=== PATIENT | female | born 1935 | race Caucasian/White ===

== ENCOUNTER 2019-03-04 10:27 | Emergency (ER) | payer OTHER ==
[~2019-03-04] VITALS: Ht 162.6 cm; Wt 95.7 kg
[2019-03-04 10:27] VITALS: BP_SYST 95
[2019-03-04] MEDS ORDERED: ONDANSETRON HCL 4 MG/2 ML VIAL IVP ONE (11:00)
[2019-03-04 11:38] LABS: BASOPHILS # (AUTO) 0.1 K/uL (0.0-0.2); BASOPHILS % (AUTO) 1.1 % (0.0-2.0); EOSINOPHILS # (AUTO) 0.2 K/uL (0.0-0.4); EOSINOPHILS % (AUTO) 2.2 % (0.0-4.0); HEMATOCRIT 37.3 % (36-48); HEMOGLOBIN 12.5 g/dL (12.0-16.0); LYMPHOCYTES # (AUTO) 1.8 K/uL (1.0-5.5); LYMPHOCYTES % (AUTO) 19.7 % (20.5-51.5); MEAN CORPUSCULAR HEMOGLOBIN 33 pg (27-31); MEAN CORPUSCULAR HGB CONC 33 % (32-36); MEAN CORPUSCULAR VOLUME 99 fL (79.0-98.0); MONOCYTES # (AUTO) 0.5 K/uL (0.0-1.0); MONOCYTES % (AUTO) 5.5 % (1.7-9.3); NEUTROPHILS # (AUTO) 6.7 K/uL (1.8-7.7); NEUTROPHILS % (AUTO) 71.5 % (40.0-70.0); PLATELET COUNT (AUTO) 175 K/uL (130-430); RED BLOOD CELL COUNT(AUTO) 3.75 MIL/uL (4.2-6.2); RED CELL DISTRIBUTION WIDTH 16.5 % (9.0-15.0); WHITE BLOOD COUNT (AUTO) 9.3 K/uL (4.8-10.8)
[2019-03-04 11:45] LABS: ANION GAP 11 (5-15); CALCIUM 9.4 mg/dL (8.4-11.0); CHLORIDE 97 mmol/L (98-107); CREATININE 5.09 mg/dL (0.55-1.30); GLUCOSE 204 mg/dL (70-99); SODIUM SERUM 139 mmol/L (136-145); UREA NITROGEN, BLOOD 26 mg/dL (8-21)
[2019-03-04] MEDS ORDERED: ONDANSETRON 4 MG ODT TAB PO ONE (11:45)
[2019-03-04 11:51] LABS: ALANINE AMINOTRANSFERASE 27 U/L (12-78); ALBUMIN 3.4 g/dL (3.4-4.8); ASPARTATE AMINOTRANSFERASE 20 U/L (10-37); TOTAL BILIRUBIN 0.4 mg/dL (0.0-1.0)
[2019-03-04] MEDS ORDERED: ACETAMINOPHEN 650 MG/20.3 ML UDC PO ONE (12:15)
[2019-03-04] MEDS ORDERED: HYDROcodone/ACETAMIN 5-325 MG TAB (NORCO/ VICODIN) PO ONE (13:15)
[2019-03-04 13:25] LABS: INR 0.8 (0.8-1.2); PROTHROMBIN TIME 9.2 SECS (9.5-12.5)
[2019-03-04 14:25] VITALS: BP_SYST 95
== END 2019-03-04 14:25 | disposition home or self-care (01) ==
LOC: SED 10:27
DX: G45.9 Transient cerebral ischemic attack, unspecified (principal); R42 Dizziness and giddiness; N18.6 End stage renal disease; I95.9 Hypotension, unspecified; E78.00 Pure hypercholesterolemia, unspecified
CPT/HCPCS: 36415; 70450; 80053; 84484; 85025; 85610; 85730; 93005; 99284; Q0162; 99285; J2405

== ENCOUNTER 2019-08-17 06:57 | Emergency (ER) | payer OTHER ==
[~2019-08-17] VITALS: Ht 162.6 cm; Wt 96.2 kg
[2019-08-17 07:28] VITALS: BP_SYST 99
[2019-08-17 07:59] LABS: BASOPHILS % (AUTO) 0.3 % (0.0-2.0); EOSINOPHILS # (AUTO) 0.3 K/uL (0.0-0.4); EOSINOPHILS % (AUTO) 2.9 % (0.0-4.0); HEMATOCRIT 32.3 % (36-48); HEMOGLOBIN 10.5 g/dL (12.0-16.0); LYMPHOCYTES # (AUTO) 1.5 K/uL (1.0-5.5); LYMPHOCYTES % (AUTO) 17.1 % (20.5-51.5); MEAN CORPUSCULAR HEMOGLOBIN 32 pg (27-31); MEAN CORPUSCULAR HGB CONC 32 % (32-36); MEAN CORPUSCULAR VOLUME 99 fL (79.0-98.0); MONOCYTES # (AUTO) 0.6 K/uL (0.0-1.0); MONOCYTES % (AUTO) 6.6 % (1.7-9.3); NEUTROPHILS # (AUTO) 6.4 K/uL (1.8-7.7); NEUTROPHILS % (AUTO) 73.1 % (40.0-70.0); PLATELET COUNT (AUTO) 190 K/uL (130-430); RED BLOOD CELL COUNT(AUTO) 3.26 MIL/uL (4.2-6.2); RED CELL DISTRIBUTION WIDTH 16.5 % (9.0-15.0); WHITE BLOOD COUNT (AUTO) 8.7 K/uL (4.8-10.8)
[2019-08-17 08:25] LABS: ANION GAP 7 (5-15); CALCIUM 8.7 mg/dL (8.4-11.0); CHLORIDE 103 mmol/L (98-107); CREATININE 5.97 mg/dL (0.55-1.30); GLUCOSE 148 mg/dL (70-99); POTASSIUM 4.9 mmol/L (3.5-5.1); SODIUM SERUM 142 mmol/L (136-145); UREA NITROGEN, BLOOD 33 mg/dL (8-21)
[2019-08-17 08:32] LABS: ALANINE AMINOTRANSFERASE 27 U/L (12-78); ASPARTATE AMINOTRANSFERASE 18 U/L (10-37); TOTAL BILIRUBIN 0.5 mg/dL (0.0-1.0)
[2019-08-17] MEDS ORDERED: NITROGLYCERIN 1 INCH (GM) OINT. TP ONE (09:30)
[2019-08-17] MEDS ORDERED: LORazepam 1 MG TABLET PO ONE (11:00)
[2019-08-17 14:24] VITALS: BP_SYST 121
== END 2019-08-17 14:24 | disposition short-term general hospital (02) ==
LOC: SED 06:57
DX: I11.0 Hypertensive heart disease with heart failure (principal); I50.9 Heart failure, unspecified; E87.70 Fluid overload, unspecified; N28.9 Disorder of kidney and ureter, unspecified; E78.00 Pure hypercholesterolemia, unspecified
CPT/HCPCS: 36415; 71045; 80053; 82550-TC; 82962; 83880; 84484; 85025; 93005; 99285

== ENCOUNTER 2021-07-04 14:45 | Emergency (ER) | payer OTHER ==
[~2021-07-04] VITALS: Ht 175.3 cm; Wt 81.6 kg
--- NOTE | 2021-07-04 15:11 | NUR ---
Patient to ER bed h1 to gown for evaluation. Side rails up. Report given to Ashia MASON.
[2021-07-04 15:12] VITALS: BP_SYST 125
--- NOTE | 2021-07-04 15:22 | NUR ---
PT COMES FROM [facility] [place]IA [facility]ULANCE FOR BLEEDING SHUNT, PRESSURE APPLIED AT FACILITY AFTER DAILYSIS COMPLETION BUT NOT EFFECTIVE IN CONTROLLING BLEEDING. COBAN NOTED TO RIGHT UPPER ARM, NO ACTIVE BLEEDING NOTED. [facility]IST WITH [facility] LANGUAGE TRANSLATION. PT AAOX3, IN NAD. RESP EVEN AND UNLABORED, ON RA @98%. SKIN W/D/I. PER , DENIES ANY DIZZINESS/ HEADACHE. NO SOB OR CP. SAFETY PRECAUTION SIN PLACE. WILL CONT T MONITOR CLOSELY.
[2021-07-04 16:03] LABS: BASOPHILS # (AUTO) 0.1 K/uL (0.0-0.2); BASOPHILS % (AUTO) 1.3 % (0.0-2.0); EOSINOPHILS # (AUTO) 0.2 K/uL (0.0-0.4); EOSINOPHILS % (AUTO) 2.6 % (0.0-4.0); HEMATOCRIT 37.2 % (36-48); HEMOGLOBIN 11.6 g/dL (12.0-16.0); LYMPHOCYTES # (AUTO) 1.2 K/uL (1.0-5.5); LYMPHOCYTES % (AUTO) 16.2 % (20.5-51.5); MEAN CORPUSCULAR HEMOGLOBIN 29 pg (27-31); MEAN CORPUSCULAR HGB CONC 31 % (32-36); MEAN CORPUSCULAR VOLUME 93 fL (79.0-98.0); MONOCYTES # (AUTO) 0.4 K/uL (0.0-1.0); MONOCYTES % (AUTO) 5.5 % (1.7-9.3); NEUTROPHILS # (AUTO) 5.4 K/uL (1.8-7.7); NEUTROPHILS % (AUTO) 74.4 % (40.0-70.0); PLATELET COUNT (AUTO) 204 K/uL (130-430); RED BLOOD CELL COUNT(AUTO) 3.98 MIL/uL (4.2-6.2); RED CELL DISTRIBUTION WIDTH 16.5 % (9.0-15.0); WHITE BLOOD COUNT (AUTO) 7.3 K/uL (4.8-10.8)
--- NOTE | 2021-07-04 16:09 | NUR ---
DR MONTGOMERY IN ROOM FOR EXAM
[2021-07-04 16:29] LABS: PROTHROMBIN TIME 10.3 SECS (9.5-12.5)
[2021-07-04 16:32] LABS: ANION GAP 5 (5-15); CALCIUM 8.5 mg/dL (8.4-11.0); CHLORIDE 101 mmol/L (98-107); CREATININE 2.02 mg/dL (0.55-1.30); GLUCOSE 128 mg/dL (70-99); POTASSIUM 3.8 mmol/L (3.5-5.1); SODIUM SERUM 134 mmol/L (136-145); UREA NITROGEN, BLOOD 10 mg/dL (8-21)
[2021-07-04 16:38] LABS: ALANINE AMINOTRANSFERASE 29 U/L (12-78); ALBUMIN 2.6 g/dL (3.4-4.8); ASPARTATE AMINOTRANSFERASE 25 U/L (10-37); LIPASE 220 U/L (73-393); TOTAL BILIRUBIN 0.3 mg/dL (0.0-1.0)
--- NOTE | 2021-07-04 17:09 | NUR ---
NO ACUTE CHANGE IN CONDITION, PT WITH EYESCLOSED, IN NAD. RESP EVEN AND UNLABORD, VSS. AT BEDSIDE.
[2021-07-04] MEDS ORDERED: ED NON STOCK ORDER 1 EA MISC TP ONE (18:15)
--- NOTE | 2021-07-04 19:11 | NUR ---
Patient given written and verbal discharge instructions and verbalizes understanding. ER MD discussed with patient the results and treatment provided. Patient in stable condition. ID arm band removed. Patient educated on pain management and to follow up with PMD. Pain Scale [0]. Opportunity for questions provided and answered. Medication side effect fact sheet provided.
[2021-07-04 19:50] VITALS: BP_SYST 128
== END 2021-07-04 19:50 | disposition home or self-care (01) ==
LOC: SED 14:45
DX: T82.838A Hemorrhage due to vascular prosthetic devices, implants and grafts, initial encounter (principal); I95.9 Hypotension, unspecified
CPT/HCPCS: 36415; 80053; 83690; 85025; 85610-TC; 85730-TC; 86886; 86900; 86901; 99283

== ENCOUNTER 2021-08-01 14:40 | Emergency (ER) | payer OTHER, SELFPAY ==
[~2021-08-01] VITALS: Ht 160 cm; Wt 94.3 kg
--- NOTE | 2021-08-01 14:45 | NUR ---
Pt brought by [facility],Rosalina&Ox4, pt presents to ER with mild bleeding on dialysis port/ R upper arm after dialysis today, pt arrived with clamp which was removed by Carlitos MASON , no bleeding noted, pt afebrile, skin pink and warm,cap refill <3, VSS, respirations even and unlabored.
[2021-08-01 14:48] VITALS: BP_SYST 150
--- NOTE | 2021-08-01 16:50 | NUR ---
Dr Bishop evaluating patient at this time
--- NOTE | 2021-08-01 17:59 | NUR ---
Pt resting in bed at this time, no bleeding noted at this time.
[2021-08-01 18:13] VITALS: BP_SYST 150
--- NOTE | 2021-08-01 18:30 | NUR ---
Patient given written and verbal discharge instructions and verbalizes understanding. ER MD discussed with patient the results and treatment provided. Patient in stable condition. ID arm band removed. no Rx of given. Patient educated on pain management and to follow up with PMD. Pain Scale 0. Opportunity for questions provided and answered. Medication side effect fact sheet provided.
== END 2021-08-01 18:13 | disposition home or self-care (01) ==
LOC: SED 14:40
DX: T82.838A Hemorrhage due to vascular prosthetic devices, implants and grafts, initial encounter (principal)
CPT/HCPCS: 99283